=== PATIENT | female | born 1935 | race Caucasian/White ===

== ENCOUNTER → 2017-04-10 | Outpatient (CLI) | payer OTHER, BC ==
--- NOTE | 2017-04-10 13:57 | MAMMOGRAPHY REPORT ---
BILATERAL DIGITAL SCREENING MAMMOGRAM WITH CAD: 04/10/2017 CLINICAL HISTORY: Routine screening. Patient has no complaints. TECHNIQUE: Current study was also evaluated with a Computer Aided Detection (CAD) system. Bilateral CC and MLO views were obtained. COMPARISON: Comparison is made to exams dated: 07/19/2015 mammogram, 07/12/2014 mammogram, 3 mammogram, 07/05/2012 mammogram, 06/30/2011 mammogram, and 06/24/2010 mammogram - [facility]. BREAST COMPOSITION: There are scattered areas of fibroglandular density in both breasts. FINDINGS: No suspicious masses, calcifications, or areas of architectural distortion are noted in ei ther breast. There has been no significant interval change compared to prior exams. Circumscribed be nign-appearing 13 mm mass in the right upper inner quadrant is not significantly changed. A biopsy m arker clip is again noted in the left lateral breast. Other small bilateral nodular asymmetries and scattered left breast benign-appearing calcifications are stable. IMPRESSION: ACR BI-RADS CATEGORY 2: BENIGN There is no mammographic evidence of malignancy. A 1 year screening mammogram is recommended. The pa tient will receive written notification of the results. Approximately 10% of breast cancers are not detected with mammography. A negative mammographic report should not delay biopsy if a clinically suggestive mass is present. Angi Martinez M.D. /:04/10/2017 13:48:35 Bag Cutter: Radha MAYEN)(Cindy), [facility] letter sent: Normal 1/2 BI-RADS Code: ACR BI-RADS Category 2: Benign
== END | disposition home or self-care (01) ==
LOC: C.MAMM 13:32
PROVIDERS: ATTEND Family Medicine
DX: Z12.31 Encounter for screening mammogram for malignant neoplasm of breast (principal)

== ENCOUNTER → 2017-07-10 | Outpatient (CLI) | payer OTHER, BC | END | disposition home or self-care (01) | LOC: C.PAPS 16:31 | PROVIDERS: ATTEND Obstetrics & Gynecology | DX: Z01.419 Encounter for gynecological examination (general) (routine) without abnormal findings (principal) ==

== ENCOUNTER → 2018-03-23 | Outpatient (CLI) | payer OTHER, BC ==
--- NOTE | 2018-03-23 13:00 | DIAGNOSTIC IMAGING REPORT ---
CHEST 2 VIEWS ROUTINE CLINICAL HISTORY: PRE OP TESTING, WENT TO LAB FIRST, SEND TO [facility] preoperative evaluation COMPARISON STUDY: No previous studies for comparison. FINDINGS: Fixed hiatal hernia. Lungs are clear. Diaphragms are smooth. No acute process. IMPRESSION: No acute process. The above report was generated using voice recognition software. It may contain grammatical, syntax or spelling errors. Electronically signed by: Jean Pierre Alicea M.D. 03/23/2018 12:59 PM Dictated Date/Time: 03/23/2018 12:57 PM
[2018-03-23 13:20] LABS: BASO % 0.6 %; BASO ABS # 0.04 K/uL (0-0.2); EOS % 1.4 %; HEMATOCRIT 38.8 % (37-47); HEMOGLOBIN 12.5 g/dL (12.0-16.0); IG# 0.01 K/uL (0.00-0.02); LYMPH % 23.7 %; LYMPH ABS # 1.68 K/uL (1.2-3.4); MEAN CELL VOLUME 78.4 fL (80-100); MEAN CORPUSCULAR HEMOGLOBIN 25.3 pg (25-34); MEAN CORPUSCULAR HGB CONC 32.2 g/dl (32-36); MEAN PLATELET VOLUME 10.8 fL (7.4-10.4); MONO ABS # 0.78 K/uL (0.11-0.59); NEUT % 63.2 %; NEUT ABS # 4.47 K/uL (1.4-6.5); PLATELET COUNT 287 K/uL (130-400); RED CELL DISTRIBUTION WIDTH CV 22.3 % (11.5-14.5); RED CELL DISTRIBUTION WIDTH SD 62.9 fL (36.4-46.3); WHITE BLOOD COUNT 7.08 K/uL (4.8-10.8)
[2018-03-23 13:48] LABS: BLOOD UREA NITROGEN 25 mg/dl (7-18); CARBON DIOXIDE 29 mmol/L (21-32); CREATININE 1.21 mg/dl (0.60-1.20); GLUCOSE 89 mg/dl (70-99); POTASSIUM 3.9 mmol/L (3.5-5.1); SODIUM 136 mmol/L (136-145)
== END | disposition home or self-care (01) ==
LOC: C.LAB 12:14
PROVIDERS: ATTEND Physician Assistant
DX: Z01.812 Encounter for preprocedural laboratory examination (principal)

== ENCOUNTER 2021-12-23 05:12 | Observation (INO) ==
--- NOTE | 2021-12-03 15:57 | PAT Medication Instructions ---
Medication Instructions Date of Service December 03, 2021 Home Medications ascorbic acid (vitamin C) 500 mg tablet (Vitamin C) 500 mg PO BID ferrous sulfate 325 mg (65 mg iron) tablet 325 mg PO BID escitalopram oxalate 20 mg tablet (Lexapro) 20 mg PO QAM [id number]-znmahwow-mouyewu [Creon] 2 tab PO TIDM Vitamin D Otc 1 tab PO QAM acetaminophen 650 mg tablet,extended release 1,300 mg PO Q12H PRN fluticasone propionate 50 mcg/actuation nasal spray,suspension 1 spray INTRANASAL DAILY PRN lactobacillus combination no.4 3 billion cell capsule (Probiotic) 3,000 mmu cells PO QAM simethicone 180 mg capsule 180 mg PO DAILY PRN PreserVision AREDS) 1 cap PO QPM STOP taking 2 weeks before surgery (or as soon as possible if surgery is within 2 weeks) PreserVision AREDS) 1 cap PO QPM DO NOT take the morning of surgery ascorbic acid (vitamin C) 500 mg tablet (Vitamin C) 500 mg PO BID ferrous sulfate 325 mg (65 mg iron) tablet 325 mg PO BID sghfsm-szkieflv-cvfsyhd [Creon] 2 tab PO TIDM Vitamin D Otc 1 tab PO QAM lactobacillus combination no.4 3 billion cell capsule (Probiotic) 3,000 mmu cells PO QAM simethicone 180 mg capsule 180 mg PO DAILY PRN Take morning of surgery With a small sip of water, OTHERWISE NOTHING TO EAT OR DRINK AFTER MIDNIGHT: escitalopram oxalate 20 mg tablet (Lexapro) 20 mg PO QAM acetaminophen 650 mg tablet,extended release 1,300 mg PO Q12H PRN (okay to take up to 4 hours prior to surgery if needed) fluticasone propionate 50 mcg/actuation nasal spray,suspension 1 spray INTRANASAL DAILY PRN (if needed) Take evening before surgery ascorbic acid (vitamin C) 500 mg tablet (Vitamin C) 500 mg PO BID ferrous sulfate 325 mg (65 mg iron) tablet 325 mg PO BID jzvrmz-adeyevyt-fqbwgin [Creon] 2 tab PO TIDM acetaminophen 650 mg tablet,extended release 1,300 mg PO Q12H PRN (if needed) fluticasone propionate 50 mcg/actuation nasal spray,suspension 1 spray INTRANASAL DAILY PRN (if needed) simethicone 180 mg capsule 180 mg PO DAILY PRN (if needed) Other Notes If you have any questions please call us at [phone] or [phone] or [phone] or [phone]
--- NOTE | 2021-12-05 14:14 | Anesthesiology Consultation ---
Date of Service December 05, 2021 Assessment & Plan (1) Encounter for pre-operative examination: Chart Review Chart Review: Acceptable Risk for Surgery (pending preop Covid testing results ) and Patient seen in Pre Admission Testing Per PAT appt on 12/05/21, patient denies any recent travel or large group activities. No known Covid positive exposures or Covid related symptoms. No known Covid infection in the past 90 days. Pt is vaccinated for Covid Preop Covid testing scheduled 12/19/21 = will await results. Educated on importance of self quarantining, social distancing and wearing mask in public for the patient one week prior to surgery and after Covid testing done Patient last seen by neuro 11/27/21= for follow-up and gait apraxia. 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 No evidence of normal pressure hydrocephalus. Does not have rigidity or resting tremor. Neuro fails trial of Sinemet when not being very helpful versus potential for side effects. Discussed referral to physical therapy for gait and balance a low patient plan on having left total hip replacement next monthshe will be in physical therapy afterwards. There does not recommend any additional neurological evaluations at this point time. Follow-up as needed. Teaching & Discussion Pre-Anesthesia Teaching/Discussion Notes: Instructed NPO after midnight before surgery,except medications with 15 cc of water. Medication instructions provided according to the PAT guidelines. History Surgery Operation Date: 12/23/21 12:30 Proposed Procedures p Left Total Hip Replacement - Shola Aguillon MD Height/Weight Height: 5 ft 7 in Weight: 74.8 kg Allergies Allergy/AdvReac Type Severity Reaction Status Date / Time lactose Allergy Mild bloating Verified 12/03/21 12:26 sulfamethoxazole Allergy Mild Rash Verified 12/03/21 12:26 [From Bactrim] trimethoprim [From Bactrim] Allergy Mild Rash Verified 12/03/21 12:26 Penicillins Allergy Unknown RED ITCHY Verified 12/03/21 12:58 RASH Medications Home Medications Medication Instructions Recorded Confirmed Last Taken ascorbic acid (vitamin C) 500 mg 500 mg PO BID 03/04/19 12/03/21 Unknown tablet (Vitamin C) ferrous sulfate 325 mg (65 mg 325 mg PO BID 03/04/19 12/03/21 Unknown iron) tablet escitalopram oxalate 20 mg tablet 20 mg PO QAM 08/20/21 12/03/21 Unknown (Lexapro) [id number]-uioxrutr-higrrbr [Creon] 2 tab PO TIDM 08/20/21 12/03/21 Unknown Vitamin D Otc 1 tab PO QAM 12/03/21 12/03/21 Unknown acetaminophen 650 mg 1,300 mg PO Q12H PRN 12/03/21 12/03/21 Unknown tablet,extended release fluticasone propionate 50 1 spray INTRANASAL DAILY PRN 12/03/21 12/03/21 Unknown mcg/actuation nasal spray,suspension lactobacillus combination no.4 3 3,000 mmu cells PO QAM 12/03/21 12/03/21 Unknown billion cell capsule (Probiotic) simethicone 180 mg capsule 180 mg PO DAILY PRN 12/03/21 12/03/21 Unknown vitamins A,C,W-vqgk-mbrcem 14,320 1 cap PO QPM 12/03/21 12/03/21 Unknown unit-226 mg-200 unit capsule (PreserVision AREDS) Past Medical History Medical History Anxiety Stable with medication Chronic back pain Fusion of spine LOWER BACK Gait apraxia F/U DR NICOLE Uses walker to ambulate Hiatal hernia S/p repair - no current issues Left knee DJD Peripheral neuropathy In bilateral feet Vertigo ON OCC Exercise / Class Metabolic Activity III < 4 Walking/Shop/Light housework (no chest pain or SOB with flat surface ambulation- uses walker ) Past Family History Family History Grandfather (Paternal) Colorectal cancer Grandmother (Paternal) Family history of diabetes mellitus Denies family history of Ovarian cancer Breast cancer Past Surgical History Surgical History H/O arthroscopic knee surgery R/L H/O breast biopsy History of colonoscopy History of esophagogastroduodenoscopy (EGD) History of Frank fundoplication History of open reduction and internal fixation (ORIF) procedure LEFT WRIST History of tonsillectomy History of tubal ligation Past Anesthesia History No Hx of Anesthesia Complications and No Family Hx of Anesthesia Complications History of PONV No Hx of PONV and No Hx of Motion Sickness Social History Smoking Status: Former smoker Do You Dip or Chew Tobacco: No Smoking End Date: QUIT 20+ YRS AGO Hx Alcohol Use: No Hx Substance Use: No Review of Systems S/p blood transfusion - secondary to anemia prior to back surgery - 2019 Patient denies chest pain, shortness of breath, dyspnea on exertion, reflux, cough, wheezing, palpitations. No hx of seizures, stroke, [place], apnea/snoring. No hx of blood clots. Physical Exam Vital Signs VITALS BP 143/65 P 76 TEMP 98.4 SP02 96% RESP 16 Constitutional no acute distress ENMT Mouth: no TMJ clicking Thyromental Distance: > or= 3.5 Finger Breadths (3.5) Mallampati Class: I Partial dentures on top and bottom Neck + limited neck extension (mild ) Respiratory normal respiratory effort; no respiratory distress Auscultation: lungs clear to auscultation bilaterally; no wheezes Cardiovascular Rate/Rhythm: regular rate and regular rhythm Heart Sounds: no murmur Vessels: no carotid bruit Musculoskeletal Spine: no pain with cervical ROM Extremities: extremities normal to inspection Psychiatric Orientation: alert Lab Results Anesthesia Preop Results Results Anesthesia Widget: WBC 5.36 K/uL (4.8-10.8) 12/05/21 Hgb 12.6 g/dL (12.0-16.0) 12/05/21 Hct 38.1 % (37-47) 12/05/21 Plt 251 K/uL (130-400) 12/05/21 Na 139 mmol/L (136-145) 12/05/21 K 4.8 mmol/L (3.5-5.1) 12/05/21 Cl 105 mmol/L (98-107) 12/05/21 CO2 29 mmol/L (21-32) 12/05/21 BUN 24 mg/dl (6-23) H 12/05/21 Creat 0.82 mg/dl (0.6-1.2) 12/05/21 Glucose Level 115 mg/dl (70-99(Fasting)) H 12/05/21 PT 10.5 Seconds (9.0-12.0) 12/05/21 PTT 25.6 Seconds (21.0-31.0) 12/05/21 INR 1.0 (0.9-1.1) 12/05/21 Blood Type O Positive 12/05/21 Antibody Screen NEGATIVE 12/05/21 Testing Electrocardiogram Date: 12/05/21 SR with 1st degree AVB at 77bpm. Otherwise normal EKG per cardio Chest X-Ray Date: 12/05/21 Findings: + NAD Echocardiogram Date: 12/21/18 EF: 60% LV Function: normal Other Findings: + LVH (Mild/concentric ) and + diastolic dysfunction (Grade I ) LA and RA mildly dilated Mild MR (directed centrally). Mild mitral annular calcification Mild to moderate TR Other Testing Brain MRI 10/15/21= No acute abnormalities
--- NOTE | 2021-12-20 09:43 | History and Physical Report ---
CHIEF COMPLAINT: Left hip pain and leg pain. HISTORY OF PRESENT ILLNESS: The patient is an 86-year-old female from [place], who presents for t reatment of her left hip and leg. She has got a several-year history of increasing left hip pain and discomfort. She has been using a walker for the past several years. She has fallen intermittently and broke her wrist at one point. She describes mostly groin pain, thigh pain, and lateral hip pain that radiates down to her knee, but no further. She limps the more she walks and has difficulty walk ing at all without a walker. Most of the pain is groin pain, but it does radiate to her knee. She i s having difficulty maintaining an independent lifestyle. Her walking tolerance is a block at best. She would like to have her hip fixed. PAST MEDICAL HISTORY: 1. Depression. 2. Chronic anemia. 3. Peptic ulcer disease. 4. Scarlet fever. 5. Hiatal hernia. 6. Spine surgery. PAST SURGICAL HISTORY: Includes, 1. Spine surgery. 2. Knee arthroscopy. 3. Breast biopsy. 4. Frank fundoplication. 5. Tubal ligation. 6. Tonsillectomy. ALLERGIES: BACTRIM AND PENICILLIN, WHICH CAUSE A RASH. CURRENT MEDICATIONS: Include, 1. Pancrelipase. 2. Iron. 3. Vitamin C. 4. Zofran. 5. Celebrex. 6. Lexapro. SOCIAL HISTORY: An 86-year-old female. She is . Her is not well. She has four chil dren. Rare alcohol intake. Does not smoke. FAMILY HISTORY: Significant for heart disease and diabetes. REVIEW OF SYSTEMS: Negative for diabetes, neurologic problems, vascular problems, or bleeding disord ers. No chest pain or shortness of breath. No history of DVT or PE. PHYSICAL EXAMINATION: GENERAL: Shows a pleasant, elderly female. Looks to be in reasonably good health. HEENT: Benign. NECK: Supple. No lymphadenopathy. LUNGS: Clear to auscultation. HEART: Has a regular rate and rhythm. ABDOMEN: Soft, nontender, nondistended. EXTREMITIES: Grossly neurovascularly intact except as follows: Examination of the left leg reveals the patient walks with a bit of an antalgic gait. She has difficulty walking well without the walker . Leg lengths appear pretty equal. She has got a very stiff hip with external rotation contracture of about 5 degrees. Negative straight leg raise. She is neurologically intact Examination of the left knee reveals a slight varus alignment. She has got bony hypertrophy medially . Small knee effusion. Range of motion 5-120. No instability. X-RAYS: X-rays of the left hip were reviewed. It shows advanced left hip DJD. She has got complete loss of her joint space. She has got cystic changes on both sides of the joint. X-rays of the left knee reveal some tricompartmental DJD. Diffuse osteopenia. ASSESSMENT: An 86-year-old female with, 1. Advanced left hip arthritis. 2. Advanced left knee degenerative joint disease. I think her hip is probably the more debilitating of the two problems, but she clearly has pain and p roblems with both. PLAN: We talked about treatment. We are going to proceed with left hip replacement as it sometimes will help with her knee pain. The risks and benefits of the left total hip replacement were explaine d to the patient and include, but not limited to, DVT, PE, , infection, neurological injury, vas cular injury, bleeding problems, pain, limited range of motion, incomplete relief of symptoms, etc. T he patient understands and desires to proceed. Informed consent was obtained. We are going to try and maximize her stability due to her history of spine surgery and mild Parkinson 's disease and ataxia. As far as discharge plans, she is planning to be discharged to her daughter's house and she will assi st in her care. Hold lisinopril on the morning of surgery. Job ID: [id number]
[2021-12-23] MEDS ORDERED: LR 60ML/HR IV SCH (06:00)
[2021-12-23] MEDS ORDERED: FAMOTIDINE 20 MG TAB PO SCH (06:00)
[2021-12-23] MEDS ORDERED: TRANEXAMIC ACID 1,000 MG **IV Pre-op IV SCH (06:00)
[2021-12-23] MEDS ORDERED: ACETAMINOPHEN 500 MG TAB PO SCH (06:00)
[2021-12-23] MEDS ORDERED: ceFAZolin 2000MG 2,000 MG/15 ML SYR IV SCH (06:00)
[2021-12-23] MEDS ORDERED: LR 500ML BOLUS, THEN 15ML/HR IV SCH (06:00)
[2021-12-23] MEDS ORDERED: MIDAZOLAM HCL 1 MG/ML 2ML VIAL ONE (06:27)
[2021-12-23] MEDS ORDERED: MoRPHine SULFATE PF 1 MG/ML 10 ML AMP/VIAL ONE (06:27)
[2021-12-23] MEDS ORDERED: PROPOFOL IV EMULSION 10 MG/ML 20 ML VIAL IV ONE ×2 (06:27→08:07)
[2021-12-23] MEDS ORDERED: BUPIVACAINE 0.5 % 5 MG/1 ML PF 10ML VIAL ONE (06:31)
[2021-12-23] MEDS ORDERED: MoRPHine SULFATE 2 MG/ML CARP IV PRN (06:42)
[2021-12-23] MEDS ORDERED: ePHEDrine sulfate 50 MG/ML AMP IV PRN ×2 (06:42→08:57)
[2021-12-23] MEDS ORDERED: diphenhydrAMINE 50 MG/ML VIAL IV PRN (06:42)
[2021-12-23] MEDS ORDERED: NALBUPHINE HCL INJ 10 MG/ML AMP IV PRN (06:42)
[2021-12-23] MEDS ORDERED: ONDANSETRON INJ 2 MG/ML 2 ML VIAL IV PRN ×2 (06:42→08:57)
[2021-12-23] MEDS ORDERED: MoRPHine SULFATE PF 1 MG/ML 10 ML AMP/VIAL INT SPINAL ONE (06:42)
[2021-12-23] MEDS ORDERED: NALOXONE HCL 1 MG in SODIUM CHLORIDE 0.9% 1000ML 1,000 ML IV PRN (06:42)
[2021-12-23] MEDS ORDERED: NALOXONE HCL 0.08 MG in SYRINGE 1.8 ML IV PRN (06:42)
[2021-12-23] MEDS ORDERED: LACTATED RINGER'S 500 ML IV PRN (06:42)
[2021-12-23] MEDS ORDERED: NALOXONE HCL 0.4 MG/1 ML VIAL/CARP IV PRN ×2 (06:42→10:14)
[2021-12-23] MEDS ORDERED: EPINEPHrine INJ 1 MG/ML AMP ONE ×2 (06:45→06:53)
[2021-12-23] MEDS ORDERED: BUPIVACAINE 0.5 % 5 MG/1 ML MPF 30ML VIAL ONE ×2 (06:45→06:53)
[2021-12-23] MEDS ORDERED: DC INTRASPINAL MORPHINE SCH (06:45)
[2021-12-23] MEDS ORDERED: SODIUM CHLORIDE 0.9% 1000ML 1,000 ML IV SCH (06:45)
[2021-12-23] MEDS ORDERED: NO NARCOTICS OR SEDATIVES SCH (06:45)
--- NOTE | 2021-12-23 06:49 | History & Physical Bridge Note ---
Date of Service December 23, 2021 History & Physical Bridge Note I have examined the patient, reviewed the History & Physical and in the interval since the performance of the History & Physical I have noted the following changes of clinical significance: no changes noted
[2021-12-23] MEDS ORDERED: fentaNYL citrate 100 MCG/2 ML VIAL ONE (08:53)
[2021-12-23] MEDS ORDERED: HYDROmorphone INJ 2 MG/ML SYR/VIAL IV PRN (08:57)
[2021-12-23] MEDS ORDERED: fentaNYL citrate 100 MCG/2 ML VIAL IV PRN (08:57)
[2021-12-23] MEDS ORDERED: ATROPINE SULFATE 0.1 MG/ML 10ML SYR IV PRN (08:57)
--- NOTE | 2021-12-23 09:02 | Operative Report ---
PG Post Operative Report Pre & Post Diagnosis Operation Date: 12/23/21 07:00 Pre-Op Diagnosis: Left Hip Osteoarthritis Post-Op Diagnosis: Left Hip Osteoarthritis I identified the patient and participated in the time-out.: Yes Procedure Operation Date: 12/23/21 07:00 Actual Procedures p Left Total Hip Replacement(Left) - Shola Aguillon MD Surgeon Shola Aguillon MD Planer Stone Shorty Elizalde PA-C Estimated Blood Loss 200 Findings Consistent with Post-Op Diagnosis Operative findings real advanced left hip DJD. She had extensive grade 4 [id number]-xd-wkwv disease of the femoral head and acetabulum. Fairly large anterior acetabular osteophyte. Moderate-sized joint effusion. Fluids 800 cc Specimens Left femoral head sent for pathology Drains None Anesthesia Type Spinal MAC Complications none Disposition Accompanied Patient To Recovery: Yes Indications Patient is an 86-year-old fairly active independent female has had a several year history of increasing left hip pain discomfort is gotten singly worse over the past year. She was having trouble getting around. She failed all conservative measures. X-rays show advanced hip arthritis. She elected proceed with surgical management. Description of Procedure Operative implants consist of: 1 Biomet G7 size 56 mm acetabular shell. 2. 6.5 cancellous acetabular screws 1 of 35 mm length and 125 mm length. 3. Valley hole petroleum engineering professor. 4. Highly cross-linked polyethylene liner with a 56 mm outer diameter 40 mm diameter. 5. DePuy Corail size 11 standard femoral stem. 6. +5/40 mm ceramic articular ball. The patient was taken to the operating, identified, and placed on the operating table supine position protectors were properly padded. IV antibiotics tried by anesthesia team. A spinal anesthetic and been implemented holding area. Galindo catheter was placed in sterile fashion. The patient then placed in the right lateral decubitus position. Axillary roll was placed. A Stulberg hip positioner was used for positioning. Left hip and leg were then prepped and draped in usual sterile fashion. A posterior lateral approach of the left hip was then performed through a curvilinear incision centered over the greater trochanter. Sharp dissection was carried through the subcutaneous tissues down to the IT band gluteal fascia the IT band gluteal fascia incised longitudinally in line with skin incision. The underlying greater bursa was excised. The piriformis and external rotators were tagged and taken off the posterior aspect hip joint capsule. Great care was taken throughout the procedure protect the sciatic nerve at all times. A posterior capsulotomy was then performed leaving a large flap for later repair. Hip was internally rotated and dislocated. Femoral neck osteotomy cut was made with Final Cut about 10 mm above the lesser trochanter. Femoral head was removed and sent for pathology. The femur was retracted anteriorly. Attention drawn the acetabulum. The acetabular labrum was excised. The pulmonary fat was excised. Sequential reaming the acetabular was then performed begin with size 43 and progressing up to 55. I did reamed a little bit with a 56 reamer and then placed a 56 cup. We placed this in about 40 degrees lateral opening and 20 degrees of anteversion. I put this in a little extra anteversion due to her history of spine surgery and early Parkinson's disease the provide some protection to posterior instability. An anterior osteophyte was removed. Trial liner was placed. Attention drawn the femur. The proximal femur was entered with a Green Momit cutter followed by canal finder. I then broached beginning with size 8 and progressing up to 11. We got excellent fit at 11. Did not think I can fit the 12 down safely. Calcar reamer was used to smooth off the calcar. We trialed the hip and the +5 articular ball seem to recreate soft tissue tension and stability appropriately. Leg lengths appeared equal. The hip was fully stable in full extension and external rotation flexion to 9 degrees internal rotation over 50 degrees. In light of this I did use to a place of 40 head in order to maximize her stability. I was considering use a dual mobility liner but based on the stability I did not feel it necessary. We elect to place these implants. All trial implants were removed. An apex global climate change researcher was placed. Highly cross- linked polyethylene liner was placed. A size 11 standard femoral stem was impacted in position. A +5/40 mm ceramic articular ball was placed. Hip was located once again found to be stable. Attention drawn toward closing. The wound was irrigated scope soft pulsatile lavage solution. I did inject locally with 60 cc of half percent Marcaine with epinephrine. Posterior capsule and external rotators then repaired through drill holes in the posterior trochanter with #2 Tycron suture. The IT band gluteal fascia then closed in 1 PDS suture running fashion for subcutaneous tissue then closed in 2 layers with a deep layer #1 Vicryl suture and subcutaneous tissues with 2-0 Dexon suture in a buried interrupted fashion. Skin was closed skin rashard. Leg was then cleaned and dried a sterile dressing was Xeroform, 4 x 4's, ABD pad and foam tape was applied. Patient then transferred to the recovery room in stable condition peer the patient tolerated procedure well and there were no complications. Shorty Elizalde, my physician assistant superintendent, was present for the entire procedure. His assistance was required for proper patient positioning, prepping and draping, surgical exposure, retraction, performing the technical details of the operation, closure of the wound, and placement of the sterile bandage. I attest to the content of the Intraoperative Record and any orders documented therein. Any exceptions are noted below.
--- NOTE | 2021-12-23 09:19 | XRay Report ---
XR hip 1V LT w pelvis CLINICAL HISTORY: IN PACU - A/P PELVIS and LATERAL HIP . Status post total hip replacement COMPARISON STUDY: No previous studies for comparison. TECHNIQUE: 3 left hip views FINDINGS: The patient is status post total hip replacement. The prosthetic components are in anatomic alignment with no acute abnormality seen. Skin rashard are seen from the recent procedure. IMPRESSION: 1. Status post total hip replacement. ACT 112: Negative or not required by law. Electronically signed by: Jesus Lares M.D. 12/23/2021 9:18 AM
--- NOTE | 2021-12-23 10:07 | Anesthesiology Progress Note ---
Date of Service December 23, 2021 Anesthesia Post Procedure Vital Signs Vital Signs: Temp Pulse Pulse Resp BP Pulse Ox 12/23/21 09:45 36.3 C L 76 19 128/72 97 12/23/21 09:35 36.3 C L 75 13 129/79 97 12/23/21 09:25 36.3 C L 75 12 135/75 99 12/23/21 09:15 72 17 132/67 100 12/23/21 09:05 74 17 136/61 100 12/23/21 08:55 74 16 133/72 100 12/23/21 08:47 36.1 C L 72 14 141/64 H 12/23/21 05:51 36.6 C 81 20 166/86 H 98 Pain Intensity Left Hip: Pain Intensity: 1 Transfer of Care Handoff Completed per policy Notes Mental Status: alert / awake / arousable and participated in evaluation Patient Amnestic to Procedure: Yes Nausea / Vomiting: adequately controlled Pain: adequately controlled Airway Patency, RR, SpO2: stable & adequate BP & HR: stable & adequate Hydration State: stable & adequate Anesthetic Complications: no major complications apparent and Pt Satisfied with anesthetic care
[2021-12-23] MEDS ORDERED: ALUMINUM/MAGNESIUM SUSP 30 ML UDC PO PRN (10:14)
[2021-12-23] MEDS ORDERED: bisacodyL 10 MG SUPP PR PRN (10:14)
[2021-12-23] MEDS ORDERED: MAGNESIUM HYDROXIDE SUSP 30 ML UDC PO PRN (10:14)
[2021-12-23] MEDS ORDERED: METOCLOPRAMIDE HCL INJ 5 MG/ML 2 ML VIAL IV PRN (10:14)
[2021-12-23] MEDS ORDERED: FLUTICASONE PROPIONATE NA SPR 16 GM BTL NAE PRN (10:14)
[2021-12-23] MEDS: SODIUM CHLORIDE 0.9% 1000ML 1,000 ML IV SCH ×2 (10:44→20:12)
[2021-12-23] MEDS ORDERED: SIMETHICONE 80 MG CHEW PO PRN (10:45)
[2021-12-23] MEDS: ASPIRIN 81 MG ECTAB PO SCH ×2 (11:10→20:13)
[2021-12-23] MEDS: ESCITALOPRAM OXALATE 20 MG TAB PO SCH (11:10)
[2021-12-23] MEDS: KETOROLAC TROMETHAMINE 15 MG/ML VIAL IV SCH ×3 (11:11→22:11)
[2021-12-23] MEDS: DOCUSATE SODIUM 100 MG CAP PO SCH ×2 (11:11→20:13)
[2021-12-23] MEDS: ADVANCED PROBIOTIC 1250 MG CAPSULE PO SCH (11:11)
[2021-12-23] MEDS: DOCUSATE SODIUM/SENNA 50/8.6MG TAB PO SCH (11:11)
[2021-12-23] MEDS: ASCORBIC ACID 500 MG TAB PO SCH ×2 (11:11→20:13)
[2021-12-23] MEDS: MULTIVITAMIN TAB PO SCH (11:11)
[2021-12-23] MEDS: CHOLECALCIFEROL 400 UNITS 10 MCG TAB PO SCH (11:40)
[2021-12-23] MEDS: PANCREAZE (LIPASE 10,500U) CAP PO SCH ×2 (13:21→17:34)
[2021-12-23] MEDS: ACETAMINOPHEN 500 MG TAB PO SCH ×2 (13:21→22:11)
[2021-12-23] MEDS ORDERED: TRANEXAMIC ACID / 0.7% NACL 1,000 MG/100 ML BAG IV SCH (15:00)
[2021-12-23] MEDS: ceFAZolin 1000MG 1,000 MG/7.5 ML SYR IV SCH (17:33)
[2021-12-23] MEDS: FERROUS SULFATE 325 MG TAB PO SCH (20:13)
[2021-12-23] MEDS ORDERED: SENNA 8.6 MG TAB PO SCH (21:00)
[2021-12-24] MEDS ORDERED: ONDANSETRON INJ 2 MG/ML 2 ML VIAL IV PRN (00:43)
[2021-12-24] MEDS ORDERED: HYDROmorphone INJ 0.5 MG/0.5 ML SYR IV PRN (00:43)
[2021-12-24] MEDS ORDERED: traMADol HCL 50 MG TABLET PO PRN (00:43)
[2021-12-24] MEDS: ceFAZolin 1000MG 1,000 MG/7.5 ML SYR IV SCH (02:22)
[2021-12-24] MEDS: KETOROLAC TROMETHAMINE 15 MG/ML VIAL IV SCH ×2 (05:42→11:00)
[2021-12-24] MEDS: ACETAMINOPHEN 500 MG TAB PO SCH ×2 (05:42→14:12)
[2021-12-24 07:01] LABS: Basophils # (auto) 0.01 K/uL (0-0.2); Basophils % (auto) 0.1 %; Eosinophils # (auto) 0.12 K/uL (0-0.5); Eosinophils % (auto) 1.3 %; Hematocrit (blood only) 32.1 % (37-47); Hemoglobin 10.9 g/dL (12.0-16.0); Immature Granulocytes # (auto) 0.01 K/uL (0.00-0.02); Immature Granulocytes % (auto) 0.1 %; Lymphocytes % (auto) 8.9 %; Mean Corpuscular Hemoglobin 31.2 pg (25-34); Mean Platelet Volume 10.9 fL (7.4-10.4); Monocytes # (auto) 0.73 K/uL (0.11-0.59); Monocytes % (auto) 8.1 %; Neutrophils # (auto) 7.35 K/uL (1.4-6.5); Neutrophils % (auto) 81.5 %; Platelet Count 180 K/uL (130-400); RDW Coefficient of Variation 13.9 % (11.5-14.5); RDW Standard Deviation 46.6 fL (36.4-46.3); Red Blood Count 3.49 M/uL (4.2-5.4); White Blood Count 9.02 K/uL (4.8-10.8)
[2021-12-24 07:15] LABS: BUN Creatinine Ratio 31.9 (10-20); Calcium 9.5 mg/dl (8.5-10.1); Creatinine Clr Calc Pharmacy 61.3 ml/min; Est GFR (African American) 89.1 ml/min; Est GFR (Non-African American) 76.9 ml/min; Potassium 4.2 mmol/L (3.5-5.1)
[2021-12-24] MEDS ORDERED: dexAMETHasone 10 MG in SYRINGE 0 ML IV SCH (08:00)
[2021-12-24] MEDS: PANCREAZE (LIPASE 10,500U) CAP PO SCH ×2 (08:16→12:19)
[2021-12-24] MEDS: ASCORBIC ACID 500 MG TAB PO SCH (08:17)
[2021-12-24] MEDS: ASPIRIN 81 MG ECTAB PO SCH (08:17)
[2021-12-24] MEDS: CHOLECALCIFEROL 400 UNITS 10 MCG TAB PO SCH (08:18)
[2021-12-24] MEDS: DOCUSATE SODIUM/SENNA 50/8.6MG TAB PO SCH (08:18)
[2021-12-24] MEDS: DOCUSATE SODIUM 100 MG CAP PO SCH (08:18)
[2021-12-24] MEDS: FERROUS SULFATE 325 MG TAB PO SCH (08:19)
[2021-12-24] MEDS: ESCITALOPRAM OXALATE 20 MG TAB PO SCH (08:19)
[2021-12-24] MEDS: ADVANCED PROBIOTIC 1250 MG CAPSULE PO SCH (08:19)
[2021-12-24] MEDS: MULTIVITAMIN TAB PO SCH (08:20)
[2021-12-24 15:18] VITALS: BP 109/56; PULSE 83; TEMP 98.6; O2SAT 95
--- NOTE | 2021-12-24 22:32 | Progress Notes ---
DATE OF SERVICE: 12/24/2021. SUBJECTIVE: An 86-year-old female postoperative day 1 from a ____ total hip replacement. She is doi ng pretty well. Got dizzy the first couple times she got up, but seems to be doing better today. No chest pain or shortness of breath. Not feeling dizzy or lightheaded. Pain is controlled. OBJECTIVE: VITAL SIGNS: Temperature 37.0. Vital signs are stable. PHYSICAL EXAMINATION: GENERAL: Shows a pleasant, elderly female. She is lying in bed and I had to wake her this afternoon . LUNGS: Clear to auscultation. HEART: Has a regular rate and rhythm. ABDOMEN: Soft, nontender, nondistended. EXTREMITIES: Grossly neurovascularly intact except as follows: Examination of the left hip reveals the dressing to be clean, dry and intact. Leg lengths were equal. Minimal swelling. No drainage. She can dorsiflex and plantarflex her foot appropriately. LABORATORY DATA: Hemoglobin 10.9, hematocrit 32.1. Electrolytes are stable. ASSESSMENT: An 86-year-old white female postoperative day 1 from a left hip replacement, doing quite well. Pain is controlled. She got dizzy the first couple times she got up, but seems to be doing b sonya. She did pass therapy. PLAN: 1. DVT prophylaxis includes thigh-high TEDs, SCDs, and aspirin twice a day. 2. PT, OT, weightbear as tolerated. Left total hip protocol. 3. Pain control, doing okay with current pain regimen. 4. Disposition: She is going to be discharged to her daughter's house and they are going to have [facility]. We will see how she does the rest of today and if she does okay, we will likely get her h ome today. Job ID: [id number]
--- NOTE | 2021-12-25 07:47 | Discharge Summary ---
Date of Service December 25, 2021 Admission HPI (Per Admitting) DICTATED BY:Shola Aguillon MD CHIEF COMPLAINT: Left hip pain and leg pain. HISTORY OF PRESENT ILLNESS: The patient is an 86-year-old female from [place], who presents for treatment of her left hip and leg. She has got a several-year history of increasing left hip pain and discomfort. She has been using a walker for the past several years. She has fallen intermittently and broke her wrist at one point. She describes mostly groin pain, thigh pain, and lateral hip pain that radiates down to her knee, but no further. She limps the more she walks and has difficulty walking at all without a walker. Most of the pain is groin pain, but it does radiate to her knee. She is having difficulty maintaining an independent lifestyle. Her walking tolerance is a block at best. She would like to have her hip fixed. PAST MEDICAL HISTORY: 1. Depression. 2. Chronic anemia. 3. Peptic ulcer disease. 4. Scarlet fever. 5. Hiatal hernia. 6. Spine surgery. PAST SURGICAL HISTORY: Includes, 1. Spine surgery. 2. Knee arthroscopy. 3. Breast biopsy. 4. Frank fundoplication. 5. Tubal ligation. 6. Tonsillectomy. ALLERGIES: BACTRIM AND PENICILLIN, WHICH CAUSE A RASH. CURRENT MEDICATIONS: Include, 1. Pancrelipase. 2. Iron. 3. Vitamin C. 4. Zofran. 5. Celebrex. 6. Lexapro. SOCIAL HISTORY: An 86-year-old female. She is . Her is not well. She has four children. Rare alcohol intake. Does not smoke. FAMILY HISTORY: Significant for heart disease and diabetes. REVIEW OF SYSTEMS: Negative for diabetes, neurologic problems, vascular problems, or bleeding disorders. No chest pain or shortness of breath. No history of DVT or PE. PHYSICAL EXAMINATION: GENERAL: Shows a pleasant, elderly female. Looks to be in reasonably good health. HEENT: Benign. NECK: Supple. No lymphadenopathy. LUNGS: Clear to auscultation. HEART: Has a regular rate and rhythm. ABDOMEN: Soft, nontender, nondistended. EXTREMITIES: Grossly neurovascularly intact except as follows: Examination of the left leg reveals the patient walks with a bit of an antalgic gait. She has difficulty walking well without the walker. Leg lengths appear pretty equal. She has got a very stiff hip with external rotation contracture of about 5 degrees. Negative straight leg raise. She is neurologically intact Examination of the left knee reveals a slight varus alignment. She has got bony hypertrophy medially. Small knee effusion. Range of motion 5-120. No instability. X-RAYS: X-rays of the left hip were reviewed. It shows advanced left hip DJD. She has got complete loss of her joint space. She has got cystic changes on both sides of the joint. X-rays of the left knee reveal some tricompartmental DJD. Diffuse osteopenia. ASSESSMENT: An 86-year-old female with, 1. Advanced left hip arthritis. 2. Advanced left knee degenerative joint disease. I think her hip is probably the more debilitating of the two problems, but she clearly has pain and problems with both. PLAN: We talked about treatment. We are going to proceed with left hip replacement as it sometimes will help with her knee pain. The risks and benefits of the left total hip replacement were explained to the patient and include, but not limited to, DVT, PE, , infection, neurological injury, vascular injury, bleeding problems, pain, limited range of motion, incomplete relief of symptoms, etc. The patient understands and desires to proceed. Informed consent was obtained. We are going to try and maximize her stability due to her history of spine surgery and mild Parkinson's disease and ataxia. As far as discharge plans, she is planning to be discharged to her daughter's house and she will assist in her care. Hold lisinopril on the morning of surgery. Admission Exam (Per Admitting) PHYSICAL EXAMINATION: GENERAL: Shows a pleasant, elderly female. Looks to be in reasonably good health. HEENT: Benign. NECK: Supple. No lymphadenopathy. LUNGS: Clear to auscultation. HEART: Has a regular rate and rhythm. ABDOMEN: Soft, nontender, nondistended. EXTREMITIES: Grossly neurovascularly intact except as follows: Examination of the left leg reveals the patient walks with a bit of an antalgic gait. She has difficulty walking well without the walker. Leg lengths appear pretty equal. She has got a very stiff hip with external rotation contracture of about 5 degrees. Negative straight leg raise. She is neurologically intact Principal Diagnosis Same as "Discharge Diagnosis" noted below under Discharge Instructions. Discharge Data Procedures Performed Operation Date: 12/23/21 07:00 Actual Procedures p Left Total Hip Replacement(Left) - Shola Augillon MD Hospital Course (1) Status post left hip replacement: Admitted post operatively s/p L hip replacement on 12/23/2021. Immediate post operatively complications. Passed PT and was stable for discharge on POD 1. Discharged to home with daughter with home health. PG Care Time/CCT Total # of Minutes Spent Total Time Spent with Patient: Total time spent is greater than 50% in coordination of care (as documented) at patient's floor/unit and/or counseling patient: Discharge Plan Discharge Items Patient Disposition: Home - Home Health Services Reason For Visit: Left Hip Osteoarthritis Discharge Diagnosis: Left Hip Replacement Activity: Per Instructions section Activity Comment: Follow/Obey hip precautions at all times. Weightbearing: Full weightbearing Weightbearing Comment: Weightbear as tolerated obeying hip precautions Non-emergency contact: Surgeon Call non-emergency contact if: you have any medication questions Follow-up/Referrals: Jarett Mcclendon D.O. [Primary Care Provider] - Diet: Regular Addtl Attending Provider Instructions: ACTIVITY RECOMMENDATIONS: Physical Therapy: * Aggressive physical therapy is not usually needed. You will learn to take care of yourself safely and walk. * Follow the "Hip Precautions Instructions." * In some cases, the social media editor at the hospital will arrange to have a therapist come to your house for the first couple of weeks to help you learn these skills. * You need to practice on your own or with the help of a family member as needed. * When you learn these skills, most of the therapy can be done on your own. Home Exercise: * You were shown a series of exercises in the hospital. Do these exercises three to four times each day including the exercises you were shown in physical therapy. Walking: * Get up and walk several times each day. For the first four weeks, try not to stand or walk for more than one hour at a time. If you do stand or walk for more th an one hour, you will not hurt anything, but your leg will likely swell. * As you feel comfortable, you may change from the walker or crutches to a cane and then to independent walking. MEDICATIONS: New Medicine: * You will likely be taking one or more of these medicines: 1. Tramadol - Take, as directed, when you need it, every six hours to control your pain. 2. Aspirin - Thins your blood to lessen the chance of forming a blood clot. * The most common side effects of pain medicine and iron are nausea and constipation. If nausea or constipation is too much of a problem or if you have any questions about your new medicines or doses, call [facility] at . We will try to help you manage these issues. "VERY IMPORTANT TO READ AND REVIEW" Pain: * The immediate post-operative period after hip replacement surgery is often quite painful. * You are given a prescription for pain medicine. You should take it, as directed, when you need it, especially before physical therapy and before going to bed. Pain that interferes with sleep is very common and can last several months. * You will likely need pain medicine for the first two to four weeks. It will not stop all of the pain. The pain will lessen and as you feel better, you may change to milder pain medicine such as Tylenol. * The most common side effects of pain medicine are nausea and constipation, so don't take more than you need. SPECIAL CARE INSTRUCTIONS: TEDs/Elastic Stockings: * The white elastic stockings help limit swelling and prevent blood clots from forming in your legs. The more you wear them, the more they work. * Wear them for six weeks. Incision Site Care: * Remove dressing postoperative day 2 and then shower. Keep direct shower pressure off the incision site. * After showering, cover nathan with dry gauze and change daily or more frequently if the dressing is getting saturated with drainage. * May completely stop using bandage if wound is dry and no drainage * Nathan are removed between 2 and 3 weeks post-op. If your follow-up appointment is made before 2 weeks, please have your appointment re- scheduled. It is too early to remove the nathan. Prevention of Infection: * Take antibiotics one hour before any dental cleaning, dental work, urological procedure, gastrointestinal procedure or any invasive surgery in order to prevent your new joint from getting infected. * You may get the antibiotics from the doctor performing the procedure or you may call our office at before and we will call in a prescription to the pharmacy of your choice. Things to Watch For: * Drainage from the incision site that occurs more than one week after your surgery. * Severely increased leg pain or swelling. * Increased redness at the incision site. * Fever above 102 degrees Fahrenheit. * Unusual chest pain or shortness of breath. * Unusual pain or burning with urination. Call [facility] at with any of the above problems or if you have any questions about your medicines or recovery. FOLLOW UP VISIT: Make an appointment to see your doctor for approximately two weeks after surgery for a progress check and staple removal by calling the office at . Pending Studies at Discharge: No Stand-Alone Forms: [facility] [place], Opioid Pain Management, Smoking Cessation Medications and DC Order Prescriptions: Continued tramadol 50 mg tablet 50 - 100 mg PO Q6H PRN (Reason: pain) Qty: 30 RF: 0 ondansetron HCl 4 mg tablet 4 mg PO Q6 PRN (Reason: nausea) Qty: 30 RF: 0 acetaminophen 500 mg capsule 1,000 mg PO TID 30 Days Qty: 180 RF: 0 aspirin [Aspirin Low Dose] 81 mg tablet,delayed release (DR/EC) 81 mg PO BID 45 Days Qty: 90 RF: 0 sennosides-docusate sodium [Senokot-S] 8.6-50 mg tablet 1 tab-cap PO DAILY Qty: 14 RF: 0 sejitz-[id number]-umzdtpf [Creon] 2 tab PO TIDM RF: 0 escitalopram oxalate [Lexapro] 20 mg tablet 20 mg PO QAM RF: 0 ferrous sulfate 325 mg (65 mg iron) Tablet 325 mg PO BID RF: 0 ascorbic acid (vitamin C) [Vitamin C] 500 mg Tablet 500 mg PO BID RF: 0 simethicone 180 mg Capsule 180 mg PO DAILY PRN (Reason: Abdominal Distention) RF: 0 Probiotic 3 billion cell Capsule 3,000 mmu cells PO QAM RF: 0 Vitamin D Otc 1 tab PO QAM RF: 0 PreserVision AREDS [id number] [id number] Capsule 1 cap PO QPM RF: 0 fluticasone propionate 50 mcg/actuation [place],Suspension 1 spray INTRANASAL DAILY PRN (Reason: Congestion) RF: 0 Discontinued acetaminophen [Tylenol Arthritis] 650 mg Tablet Extended Release 1,300 mg PO Q12H PRN (Reason: Pain) RF: 0 Discharge Orders: Discharge Order (Routine); Ordered 12/24/21 Ordered By: Shola Roberts/Other Patient Handouts: DVT Post Op Prevention Admission Data Admit Date/Time: 12/23/21 08:53 Attending Provider: Shola Aguillon Admit Provider: Shola Aguillon Primary Care Provider: Jarett Mcclendon Other Providers: [facility],Home Health Other Interventions: Discharge Summary Assessment (RN) Last Done: 12/24/21 15:21
== END 2021-12-24 16:55 | disposition home health service (06) ==
LOC: 3E 05:12 → ASU 05:12